=== PATIENT | female | born 1970 | race Hispanic/Latino ===

== ENCOUNTER 2022-04-19 20:50 | Emergency (ER) | payer OTHER ==
[~2022-04-19] VITALS: Ht 162.6 cm; Wt 35.4 kg
--- OUTSIDE RECORDS SUMMARY | 2022-04-19 20:54 | XMS ---
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 E.D. VISIT COUNT (12 MO.) [address] 1 [facility] 1 [facility] 1 [facility]. TOTAL 6 NOTE: Visits indicate total known visits. ED/UCC VISIT TRACKING (12 MO.) 04/19/2022 20:51 NACHO Kumari TYPE: Emergency COMPLAINT: - VOMITING, DIZZINESS 04/16/2022 22:52 [place] FU TYPE: Emergency COMPLAINT: - Nausea_NAUSEA, VOMITING, MIGRAINE, DIZZINESS 04/16/2022 22:11 [facility] FU TYPE: Emergency DIAGNOSES: - Headache (Adult - New Onset Or New Symptoms) 04/09/2022 18:06 [facility] [place] TYPE: Emergency DIAGNOSES: - Disorientation, unspecified - CONFUSION 04/06/2022 12:24 [facility] [place] TYPE: Emergency DIAGNOSES: - CVA SYMPTOMS FOR 6 DAYS - Migraine with aura, intractable, without status migrainosus 04/01/2022 00:48 [facility] [place] FU TYPE: Emergency DIAGNOSES: - Emesis - Near Syncope - Headache, unspecified - Dizziness and giddiness - Nausea with vomiting, unspecified INPATIENT VISIT TRACKING (12 MO.) 04/09/2022 18:06 [facility] [place] TYPE: Medical Surgical DIAGNOSES: - Disorientation, unspecified [email or web address]
[2022-04-19] MEDS ORDERED: PROZAC10 MG PO (21:19)
[2022-04-19] MEDS ORDERED: PROMETHAZINE HC25 M1 PO (21:20)
[2022-04-19] MEDS ORDERED: RIZATRIPTAN10 M1 PO (21:21)
[2022-04-19] MEDS ORDERED: HYDROCODON-ACE1 EA11 PO (21:21)
[2022-04-20] MEDS ORDERED: AMITRIPTYLINE H50 MG PO (01:17)
== END 2022-04-20 04:28 | disposition home or self-care (01) ==
LOC: ED 20:50
DX: G43.809 Other migraine, not intractable, without status migrainosus (principal); Z79.899 Other long term (current) drug therapy
CPT/HCPCS: 36415; 70450; 70496; 80053; 85025; 85651; 86140; 86788; 87327; 96361; 96374; 96375; 96376; 99284-25; J1100; J1170; J1200; J1790; J1885; J2550; J2765; J3030; J7030; Q9967